=== PATIENT | male | born 1945 | race Caucasian/White ===

== ENCOUNTER → 2023-11-27 06:23 | Day surgery (SDC) | payer OTHER, SELFPAY | LOC: GI 06:23 | PROVIDERS: ATTENDING PHYSICIAN Internal Medicine Gastroenterology; FAMILY PHYSICIAN Internal Medicine | DX: Z12.11 Encounter for screening for malignant neoplasm of colon (principal); K59.00 Constipation, unspecified; K57.30 Diverticulosis of large intestine without perforation or abscess without bleeding; K64.8 Other hemorrhoids; D12.4 Benign neoplasm of descending colon; Z80.0 Family history of malignant neoplasm of digestive organs | CPT/HCPCS: 45380; 88305 ==

== ENCOUNTER 2024-02-09 16:59 | Emergency (ER) | payer OTHER, SELFPAY ==
[2024-02-09 17:00] VITALS: BMI 30.2
[2024-02-09 17:05] VITALS: BP 134/96
--- NOTE | 2024-02-09 20:36 | ED.GENMED ---
History of Present Illness
General
Chief Complaint: Skin Problem
Source: patient
Exam Limitations: none
Time Seen by Provider: 02/09/24 20:26
History of Present Illness
History of Present Illness:
See MDM
Past History
Past History
ED Past Medical History: None
ED Past Surgical History: None
Social History
Tobacco: Non-smoker
Alcohol: None
Phy Exam
Physical Exam
Physical Exam:
See MDM
Course
Orders/Labs/Results
Orders:
Orders
02/09/24 17:12
CR Toe(s) Min 2 Vw Right Urgent
Comment:
Reason For Exam: swelling and redness
Indicate Which Toe:: Great
02/09/24 20:36
Sulfamethox./Trimethoprim Ds [Bactrim Ds 800 mg/160 mg] 1 tablet PO NOW STA
02/09/24 20:53
Oxycodone/Acetaminophen [Percocet 5/325] 1 tablet PO NOW STA
Vital Signs
Initial and Last Documented VS:
Initial Vital Signs
Temp Pulse Resp BP Pulse Ox
99.6 F 95 18 134/96 95
02/09/24 17:05 02/09/24 17:05 02/09/24 17:05 02/09/24 17:05 02/09/24 17:05
Last Documented Vital Signs
Temp Pulse Resp BP Pulse Ox
99.6 F 95 18 134/96 95
02/09/24 17:05 02/09/24 17:05 02/09/24 17:05 02/09/24 17:05 02/09/24 17:05
Procedures
Incision/Drainage/Joint Aspiration
Right Distal Dorsal First Toe:
Anethesia: 1% Lidocaine
Preparation: cleaned with alcohol wipe
Type of procedure: incise and drain
Nature of site: hematoma
Description of abscess: less than 3cm
Loculations broken up: Yes
How much fluid was obtained?: scant amount
Fluid description: purulent and bloody
Treatment: left open for drainage
MDM/Problems Addressed
Differential Diagnosis Includes:
HPI and MDM Narrative:
78-year-old male presenting with swelling to his right big toe. He noticed this over the past few days. He went to urgent care yesterday and they tried to drain it with a needle but only blood came out. He was placed on Keflex. Patient returns
because symptoms have not improved.
On exam, he has evidence of a paronychia to his right great toe. Patient gave verbal consent for digital block and incision. X-rays performed prior to my evaluation showing arthritic changes and no obvious osteomyelitis
Physical exam
General: Well appearing and non-toxic
HEENT: protecting airway
Neck: appears supple
CV: No evidence of cyanosis
Resp: No accessory muscle use
Abd: Non-distended
Extremities: Paronychia noted to right great toe. Sensation grossly intact. Surrounding cellulitis noted
Neuro: alert
Psych: Normal affect
Skin: Intact
Problems Addressed including Acute and Chronic Conditions affecting care:
1. Right great toe paronychia
Acuity: acute
Prognosis: stable
Details: Patient gave verbal consent for incision and drainage. Patient was already placed on Keflex. Will add Bactrim
Updates
Patient tolerated incision and drainage well. Pus and blood was removed. Compression dressing applied. Discussed follow-up with podiatry and PCP
Differential Diagnosis (but not limited to): Paronychia, cellular
Testing considered: Cultures
Drug therapy (if applicable): OTC meds, please see d/c instruction regarding Rx drugs
Amount and/or Complexity of Data Reviewed
Clinical info obtained from: Patient
External data reviewed: N/A
Labs I independently reviewed (but not limited to): N/A
Radiology: X-ray independently reviewed: Toe x-ray without evidence of fracture
Pulse Ox: not hypoxic
EKG independently reviewed: N/A
Environmental Lawyer: N/A
Critical Care: N/A
Risk of Complication:
Social Determinants of health: Good social support
Discussed with other providers: N/A
Escalation of Care includes Admit/Obs: After being observed in the Emergency Department, pt stable for discharge.
Occasional wrong word or 'sound a like' substitutions may have occurred due to the inherent limitations of voice recognition software. Read the chart carefully and recognize, using context, where substitutions have occurred.
*Critical Care Note
Total Time (30-74mins, 75-104mins- exclusive of procedures): Not Applicable
ED Attending Note
-
Portions of this chart may have been created with voice recognition software.� Occasional wrong word or��sound alike� substitutions may have occurred due to the inherent limitations of voice recognition software.
Discharge Plan
Departure
Discharge Problem:
Paronychia of great toe
Instructions: Paronychia ED
Prescriptions:
New
sulfamethoxazole-trimethoprim [Bactrim DS] 800-160 mg tablet
1 tab PO BID 7 Days Qty: 14 0RF
oxycodone 5 mg tablet
5 mg PO Q8H PRN (Reason: Pain) Qty: 10 0RF
No Action
Effexor Xr
150 mg PO DAILY
Referrals:
Lev Burroughs DPM [Specified Professional Personl] -
Williams Tinajero MD [Family Provider] -
Activity Restrictions/Additional Instructions:
Please return for any worsening symptoms.
You may return at any time if you have further concerns.
Please follow up with your doctor at the first available appointment, preferably this week.
Make an appointment to see the abrasive worker.
Thank you for choosing [facility].
Interventions
Interventions:
*Risk Screen - Suicide Last Done: 02/09/24 17:11
*Neglect/Abuse Screening Last Done: 02/09/24 17:11
*ED COVID-19 Vaccine History Last Done: 02/09/24 17:11
ED-Skin Assessment Last Done: 02/09/24 20:24
Discharge Date and Time
Print Language: UKRAINIAN
[2024-02-09] MEDS: BACTRIM DS 800 MG/160 MG 1 TABLET PO (21:00)
[2024-02-09] MEDS: PERCOCET 5/325 1 TABLET PO (21:00)
[2024-02-09 21:13] VITALS: BP 130/86
== END 2024-02-09 21:14 | disposition home or self-care (01) ==
LOC: EMR 16:59
PROVIDERS: EMERGENCY PHYSICIAN Student in an Organized Health Care Education/Training Program; FAMILY PHYSICIAN Internal Medicine
DX: L03.039 Cellulitis of unspecified toe (principal)
CPT/HCPCS: 99283; 10060; 73660

== ENCOUNTER → 2025-05-26 13:10 | Outpatient (REF) | payer OTHER, SELFPAY | LOC: MRI 3T 13:10 | PROVIDERS: ATTENDING PHYSICIAN Internal Medicine | DX: H53.9 Unspecified visual disturbance (principal) | CPT/HCPCS: 70553; A9575 ==